=== PATIENT | male | born 1955 | race African-American/Black ===

== ENCOUNTER 2017-08-20 19:14 | Emergency (ER) | payer BC, OTHER ==
[~2017-08-20] VITALS: Ht 190.5 cm; Wt 102.4 kg
[~2017-08-20 19:14] MED LIST: HYDR12.58 PO; LISI-167 PO; OXYC5TAB3 PO
[2017-08-20 19:21] VITALS: BP 127/79
[2017-08-20 19:58] LABS: HEMATOCRIT 47.8 % (39.2-51.8); HEMOGLOBIN 15.3 g/dL (13.7-18.0); WHITE BLOOD COUNT 8.5 x10^3/uL (3.4-10)
[2017-08-20] MEDS ORDERED: ASPIRIN 325 MG TABLET PO ONE (20:00)
[2017-08-20 20:08] LABS: BLOOD UREA NITROGEN 16 mg/dL (7-18)
[2017-08-20 20:21] LABS: IS PT STATUS REG ER OR PRE ER? YES
[2017-08-20 22:15] LABS: IS PT STATUS REG ER OR PRE ER? YES
== END 2017-08-20 22:56 | disposition home or self-care (01) ==
LOC: ED 22:45
DX: R07.2 Precordial pain (principal); I10 Essential (primary) hypertension; E78.5 Hyperlipidemia, unspecified
CPT/HCPCS: 36415; 71010; 80048; 82040; 84484; 85025; 93005; 99285